=== PATIENT | male | born 1975 | race Caucasian/White ===

== ENCOUNTER 2022-11-21 17:22 | Emergency (ER) | payer OTHER ==
[2022-11-21] MEDS ORDERED: NA CHLORIDE 0.9% 1,000 ML ONE (19:19)
[2022-11-21 19:28] LABS: Absolute Lymphocytes (CBC) 2.5 K/uL (0.7-4.9); Hematocrit 50.2 % (39.6-49.0); Lymphocytes % 33.9 % (15.3-44.8); MCV 88.9 fL (80-100); MPV 7.5 fL (7.6-11.3); Platelets 287 thou/uL (152-406); RBC Red Blood Cell Count 5.65 M/uL (4.33-5.43)
[2022-11-21 20:04] LABS: Potassium 3.9 mEq/L (3.5-5.1)
--- NOTE | 2022-11-21 20:05 | EDPHYS ---
Physician Documentation [facility] Name: Odilon Luther Age: 47 yrs Sex: Male : 1975 Arrival Date: 11/21/2022 Time: 17:22 Bed DIS1 Private MD: ED Physician Jah Sadler HPI: 11/21 20:05 This 47 yrs old Male presents to ER via Ambulatory with complaints of High Blood Sugar. kb 20:05 The patient or guardian reports hyperglycemia. that was potentially precipitated by kb eating. Onset: The symptoms/episode began/occurred just prior to arrival. Associated signs and symptoms: Pertinent positives: None. Current symptoms: In the emergency department the patient's symptoms are unchanged from the initial presentation. The patient has not experienced similar symptoms in the past. The patient has not recently seen a physician. pt reports his sugar was elevated after drinking a 7up and eating a rice crispy. States he is at [facility] and their protocol says if it is over a certain number he has to come to the ER for eval. Denies any symptoms. Historical: - Allergies: 17:47 No Known Allergies; mb9 - Home Meds: 17:47 Jardiance oral [Active]; Metformin Oral [Active]; mb9 - PMHx: 17:47 Diabetes mellitus; mb9 - PSHx: 17:47 None; mb9 - Immunization history:: Adult Immunizations up to date. - Social history:: Smoking status: Patient reports the use of cigarette tobacco products, smokes one-half pack cigarettes per day. ROS: 20:05 Constitutional: Negative for fever, chills, and weight loss, kb 20:05 All other systems are negative, Exam: 20:05 Constitutional: This is a well developed, well nourished patient who is awake, alert, kb and in no acute distress. Head/Face: Normocephalic, atraumatic. ENT: Moist Mucous membranes Cardiovascular: Regular rate Respiratory: Respirations even and unlabored. No increased work of breathing. Talking in full sentences Abdomen/GI: Soft, non-tender. No distention Skin: Warm, dry with normal turgor. Normal color. MS/ Extremity: Pulses equal, no cyanosis. Neurovascular intact. Full, normal range of motion. Neuro: Awake and alert, GCS 15, oriented to person, place, time, and situation. Moves all extremities. Normal gait. Vital Signs: 17:45 BP 108 / 78; Pulse 73; Resp 18; Temp 97.8; Pulse Ox 98% ; Weight 79.38 kg; Height 5 ft. mb9 11 in. ; Pain 0/10; 20:19 BP 100 / 62; Pulse 74; Resp 18 S; Pulse Ox 100% on R/A; as6 17:45 Body Mass Index 24.41 (79.38 kg, 180.34 cm) mb9 17:45 Pain Scale: Adult mb9 MDM: 17:45 Patient medically screened. kb 20:05 Differential diagnosis: DKA, hyperglycemia. Data reviewed: vital signs, nurses notes. kb Counseling: I had a detailed discussion with the patient and/or guardian regarding the historical points, exam findings, and any diagnostic results supporting the discharge/admit diagnosis, lab results, the need for outpatient follow up, a family practitioner, to return to the emergency department if symptoms worsen or persist or if there are any questions or concerns that arise at home. 11/21 17:49 Order name: CBC with Diff; Complete Time: 19:37 kb 11/21 17:49 Order name: Basic Metabolic Panel; Complete Time: 20:04 kb 11/21 17:49 Order name: IV Start; Complete Time: 19:18 kb Administered Medications: 19:18 Drug: NS 0.9% IV 1000 ml IV at 1000 ml once Route: IV; Rate: 1000 ml; Site: right as6 antecubital; 20:20 Follow up: Response: No adverse reaction; IV Status: Completed infusion; IV Intake: as6 1000ml Disposition: 21:52 Co-signature as Attending Physician, Jah Sadler MD I reviewed the patient's care rt provided by the Advanced Practice Provider and agree with the diagnosis and treatment plan. Disposition Summary: 11/21/22 20:04 Discharge Ordered Notes: Location: Home kb Condition: Stable kb Diagnosis - Hyperglycemia, unspecified kb Followup: kb - With: Emergency Department - When: As needed - Reason: Worsening of condition Followup: kb - With: Private Physician - When: 2 - 3 days - Reason: Recheck today's complaints, Continuance of care, Re-evaluation by your physician Discharge Instructions: - Discharge Summary Sheet kb - Hyperglycemia, [id number] kb - Type 2 Diabetes Mellitus, Diagnosis, Adult, [id number] kb Forms: - Medication Reconciliation Form kb - Thank You Letter kb - Antibiotic Education kb - Prescription Opioid Use kb - Patient Portal Instructions kb - Leadership Thank You Letter kb Signatures: Dispatcher [employer] Tayler Manning, OPERATOR [employer]-C OPERATOR [employer]-Tato Velasco RN RN as6 Stephanie Kearney RN RN mb9 Jah Sadler MD MD rt
--- NOTE | 2022-11-21 20:05 | ER ---
Nurse's Notes [facility] Name: Odilon Luther Age: 47 yrs Sex: Male : 1975 Arrival Date: 11/21/2022 Time: 17:22 Bed DIS1 Private MD: Diagnosis: Hyperglycemia, unspecified Presentation: 11/21 17:45 Chief complaint: Patient states: "I took my blood sugar 45 minutes ago and it was 445 mb9 and then 385. I did eat a rice crispy treat. I'm [facility] and have to be checked out if its over a certain number.". Coronavirus screen: At this time, the client does not indicate any symptoms associated with coronavirus-19. Ebola Screen: No symptoms or risks identified at this time. Initial Sepsis Screen: Does the patient meet any 2 criteria? No. Patient's initial sepsis screen is negative. Does the patient have a suspected source of infection? No. Patient's initial sepsis screen is negative. Risk Assessment: Do you want to hurt yourself or someone else? Patient reports no desire to harm self or others. Onset of symptoms was November 21, 2022. 17:45 Method Of Arrival: Ambulatory mb9 17:45 Acuity: SONIA 3 mb9 Triage Assessment: 17:48 General: Appears in no apparent distress. Behavior is calm, cooperative. Pain: Denies mb9 pain. EENT: No signs and/or symptoms were reported regarding the EENT system. Neuro: [place] Agitation-Sedation Scale (RASS): 0 - Alert and Calm Level of Consciousness is awake, alert, obeys commands, Oriented to person, place, time, situation, Appropriate for age. Cardiovascular: Patient's skin is warm and dry. Respiratory: Airway is patent Respiratory effort is even, unlabored, Respiratory pattern is regular, symmetrical. GI: No signs and/or symptoms were reported involving the gastrointestinal system. : No signs and/or symptoms were reported regarding the genitourinary system. Derm: Skin is pink, warm \\T\\ dry. Musculoskeletal: Range of motion: intact in all extremities. Historical: - Allergies: 17:47 No Known Allergies; mb9 - Home Meds: 17:47 Jardiance oral [Active]; Metformin Oral [Active]; mb9 - PMHx: 17:47 Diabetes mellitus; mb9 - PSHx: 17:47 None; mb9 - Immunization history:: Adult Immunizations up to date. - Social history:: Smoking status: Patient reports the use of cigarette tobacco products, smokes one-half pack cigarettes per day. Screenin:19 [facility] ED Fall Risk Assessment (Adult) Score/Fall Risk Level 0 - 2 = Low Risk. Abuse as6 screen: Denies threats or abuse. Denies injuries from another. Nutritional screening: No deficits noted. Tuberculosis screening: No symptoms or risk factors identified. Vital Signs: 17:45 BP 108 / 78; Pulse 73; Resp 18; Temp 97.8; Pulse Ox 98% ; Weight 79.38 kg; Height 5 ft. mb9 11 in. ; Pain 0/10; 20:19 BP 100 / 62; Pulse 74; Resp 18 S; Pulse Ox 100% on R/A; as6 17:45 Body Mass Index 24.41 (79.38 kg, 180.34 cm) mb9 17:45 Pain Scale: Adult mb9 ED Course: 17:27 Patient arrived in ED. im 17:28 Tayler Small FNP-C is PHCP. kb 17:28 Jah Sadler MD is Attending Physician. kb 17:47 Triage completed. mb9 17:48 Arm band placed on. mb9 19:19 Inserted saline lock: 20 gauge in right antecubital area, using aseptic technique. as6 Blood collected. 20:19 Bed in low position. Call light in reach. Provided Education on: follow up. as6 20:19 No provider procedures requiring assistance completed. IV discontinued, intact, as6 bleeding controlled, No redness/swelling at site. Pressure dressing applied. Administered Medications: 19:18 Drug: NS 0.9% IV 1000 ml IV at 1000 ml once Route: IV; Rate: 1000 ml; Site: right as6 antecubital; 20:20 Follow up: Response: No adverse reaction; IV Status: Completed infusion; IV Intake: as6 1000ml Medication: 20:19 VIS not applicable for this client. as6 Intake: 20:20 IV: 1000ml; Total: 1000ml. as6 Outcome: 20:04 Discharge ordered by . kb 20:19 Discharged to home ambulatory, as6 20:19 Condition: stable 20:19 Discharge instructions given to patient, Instructed on discharge instructions, follow up and referral plans. Demonstrated understanding of instructions, follow-up care, 20:20 Patient left the ED. as6 Signatures: Tayler Small FNP-C FNP-Tato Velasco RN RN as6 Stephanie Kearney RN RN mb9 Brenda Palma Corrections: (The following items were deleted from the chart) 17:48 17:45 Acuity: SONIA 4 mb9 mb9
[2022-11-21 20:24] VITALS: TEMP 97.8
[2022-11-21 20:25] VITALS: BP 100/62; O2SAT 100
== END 2022-11-21 20:20 | disposition home or self-care (01) ==
LOC: ER 17:22
DX: E11.65 Type 2 diabetes mellitus with hyperglycemia (principal); F17.210 Nicotine dependence, cigarettes, uncomplicated
CPT/HCPCS: 85025; 80048; 36415; 96360; 99284; J7030